=== PATIENT | female | born 1980 | race Caucasian/White ===

== ENCOUNTER 2018-04-27 21:45 | Emergency (ER) | payer OTHER ==
[2018-04-27 22:12] VITALS: BP 105/51; PULSE 61; TEMP 99.2; BMI 28.3
--- NOTE | 2018-04-27 22:31 | PDOC ---
History of Present Illness - General Chief Complaint: Cold Symptoms Stated Complaint: COLD SYMPTOMS Time Seen by Provider: 04/27/18 22:24 - History of Present Illness Initial Comments: 37-year-old female with a cough for 3 weeks nonproductive and dry she presents for evaluation of associated sinus congestion and headache with her cough. No other associated symptoms no fever. PMH of hypothroidism 04/27/18 22:27 04/27/18 22:30 Past History - Past Medical History Allergies/Adverse Reactions: Allergies Allergy/AdvReac Type Severity Reaction Status Date / Time No Known Allergies Allergy Verified 04/27/18 22:12 Home Medications: Ambulatory Orders Amox-Tr/K Cl [Augmentin - 875Mg Tablet] 1 tab PO BID #20 tablet 04/27/18 Budesonide [Rhinocort Allergy] 1 spray NS ONCE #1 spray.pump 04/27/18 Cetirizine HCl/Pseudoephedrine [Zyrtec-D Tablet] 1 each PO DAILY #30 tab.er.12h 04/27/18 CVA: No COPD: No Thyroid Disease: Yes (hypo) - Suicide/Smoking/Psychosocial Hx Smoking History: Never smoked Have you smoked in the past 12 months: No Information on smoking cessation initiated: No Hx Alcohol Use: No Drug/Substance Use Hx: No Substance Use Type: None Review of Systems - Review of Systems Respiratory: Yes: Cough Neurological: Yes: Headache All Other Systems: Reviewed and Negative *Physical Exam - Vital Signs Last Vital Signs Temp Pulse Resp BP Pulse Ox 99.2 F 61 17 105/51 100 04/27/18 22:07 04/27/18 22:07 04/27/18 22:07 04/27/18 22:07 04/27/18 22:07 - Physical Exam Comments: HEAD: NC/AT EYES: Conjuntiva clear Ears: Canals and TM's bulging NOSE: Injected and swollen turbinates THROAT: Moist mucous membrances, oral pharanx clear, uvula midline NECK: Supple without adenopathy CARDIAC: S1 S2 LUNGS: CTA Full and Equal breath sounds ABDOMEN: Soft NT ND MS: Full ROM in all joints without edema NEUROLOGIC: No gross sensory or motor deficits, NVID SKIN: Normal color and temperature no lesions or rashes 04/27/18 22:28 *DC/Admit/Observation/Transfer Diagnosis at time of Disposition: Sinusitis - Discharge Dispostion Disposition: HOME Condition at time of disposition: Stable Decision to Admit order: No - Referrals Referrals: Carlee Botello [Staff Physician] - Tomasz Botello MD [Staff Physician] - - Patient Instructions Printed Discharge Instructions: Sinusitis, DI for Sinusitis Additional Instructions: Return to the emergency room should symptoms worsen or go unresolved. I've recommended primary care physician few follow-up with for further evaluation and treatment options. He should follow-up in 2-3 days. He can medication I prescribed a few as directed. - Post Discharge Activity
== END 2018-04-27 22:37 | disposition home or self-care (01) ==
LOC: JERFT 21:45
DX: J01.90 Acute sinusitis, unspecified (principal); E03.9 Hypothyroidism, unspecified
CPT/HCPCS: 99281-25